=== PATIENT | male | born 1990 | race Caucasian/White ===

== ENCOUNTER 2016-10-16 13:35 | Emergency (ER) | payer SELFPAY ==
--- NOTE | 2016-10-19 16:00 | ER ---
ADMIT: 10/16/2016 RM/LOC: ER [facility] MR#: [id number] [id number] [place], [place] [id number] ERLINDAFernandaKENIA [address] [address] Emergency Room Report SEX: M AGE: 25 : 1990 DATE: 10/16/2016 BRIEF ADDENDUM: Please see my T-sheet for complete review of systems, past medical history, and physical exam. CHIEF COMPLAINT TODAY: An insect bite. HISTORY OF PRESENT ILLNESS: This is a pleasant 25-year-old white male, who presents with some concerns for a possible insect bite to the inside of his right groin. The patient states he has had some sore in his groin for the past 2 months. He awoke today and noticed one was acutely enlarged with some tenderness and some serosanguineous drainage. He is concerned about possible MRSA infection. I think this could be a spider bite or an ingrown hair. Denies any fever or chills. He is battling an upper respiratory infection right now with some nasal congestion and cough. COURSE IN THE EMERGENCY ROOM: The patient was seen and examined. He is afebrile and nontoxic. He does have 3 small cutaneous abscesses on the medial side of his right thigh, kind of in the intertriginous region of his groin. They are tender to the touch and indurated. There is no fluctuance. I do not think that these could be drained today. IMPRESSION: Cutaneous abscess. DISPOSITION: Encouraged the patient to use warm compresses to the area for 5 minutes 3 times a day as well as starting him on Bactrim DS 1 tab p.o. b.i.d. for 5 days. He should follow up with Dr. Santos as needed if this is not improving. Questions sought and answered to best of my ability and the patient's satisfaction. Discharged in stable condition. NANCY Rosenberg / Osiel Randall MD / vito JOB #: [id number] CC: Osiel Randall MD, Attending Physician Jayce Santos MD, Family Physician
== END 2016-10-16 14:15 | disposition home or self-care (01) ==
LOC: ER 13:35
DX: L02.214 Cutaneous abscess of groin (principal); F17.210 Nicotine dependence, cigarettes, uncomplicated